=== PATIENT | male | born 1965 | race Caucasian/White ===

== ENCOUNTER 2022-02-06 22:03 | Inpatient (IN) | payer MEDICARE ==
[~2022-02-06 22:03] MED LIST: Iopamidol-370 76% 500 ML 1 ML ONE
[2022-02-06] MEDS ORDERED: Morphine 4 MG/ML VIAL ONE (22:08)
[2022-02-06] MEDS ORDERED: CEFAZOLIN 1 GM VIAL ONE (22:08)
[2022-02-06] MEDS ORDERED: Ketorolac Tromethamine 30 MG/ML VIAL ONE (22:08)
[2022-02-06] MEDS ORDERED: Boostrix 0.5 ML (Tdap) VIAL (>/=7 yrs of age) ONE (22:09)
[2022-02-06] MEDS ORDERED: Ondansetron PF 4 MG/2 ML Vial ONE ×2 (22:32→23:12)
[2022-02-06 22:39] LABS: #Basophils 0.1 thou/uL (0.0-0.2); #Eosinphils 0.2 thou/uL (0.0-0.7); #Lymphocytes 1.8 thou/uL (1.20-3.40); #Monocytes 0.7 thou/uL (0.11-0.59); #Neutrophils 6.8 thou/uL (1.40-6.50); %Basophils 0.9 % (0.0-1.0); %Eosinophils 1.8 % (0.0-10.0); %Lymphocytes 18.8 % (21.0-51.0); %Monocytes 6.9 % (0.0-10.0); %Neutrophils 71.5 % (42.0-75.0); Hemoglobin 15.7 g/dL (14.0-18.0); Mean Corpuscular HGB CONC 33.1 g/dL (32.0-36.0); Mean Corpuscular Hemoglobin 30.7 pg (27.0-31.0); Mean Corpuscular Volume 92.9 fl (78.0-98.0); Platelet Count 427 10x3/uL (130-400); RBC Distribution Width 12.5 % (11.5-14.5); Red Blood Cell (RBC) Count 5.12 mill/uL (4.70-6.10); White Blood Cell (WBC) Count 9.5 10x3/uL (4.8-10.8)
[2022-02-06] MEDS ORDERED: Fentanyl 250 MCG/5 ML VIAL ONE (22:44)
[2022-02-06 23:07] LABS: Acetaminophen Less than 10.0 mcg/mL (10.0-30.0); Alcohol Less than 10 mg/dL (Less than 10); Salicylate Less than 8.0 mg/dL (15.0-30.0)
[2022-02-06 23:08] LABS: ALT (SGPT) 15 U/L (8-55); AST (SGOT) 15 U/L (5-34); Alkaline Phosphatase 74 U/L (40-110); Anion Gap 12 mmol/L (10-20); BUN (Urea Nitrogen) 10 mg/dL (8.4-25.7); Bilirubin, Total 0.4 mg/dL (0.2-1.2); Calc. Creatinine Clearance 0 mL/min (70-130); Calcium 8.9 mg/dL (7.8-10.44); Carbon Dioxide 22 mmol/L (22-29); Chloride 105 mmol/L (98-107); Estimated GFR 96; Globulin 2.4 g/dL (2.4-3.5); Glucose 99 mg/dL (70-105); Potassium 4.1 mmol/L (3.5-5.1); Protein, Total 6.4 g/dL (6.0-8.3); Sodium 135 mmol/L (136-145)
[2022-02-06] MEDS ORDERED: Rocuronium Bromide 10 MG/ML (10ML VIAL) ONE (23:12)
[2022-02-06] MEDS ORDERED: Dexamethasone 20 MG/5 ML VIAL ONE (23:12)
[2022-02-06] MEDS ORDERED: PROPOFOL 200 MG/20 ML VIAL ONE (23:12)
[2022-02-06] MEDS ORDERED: Succinylcholine Chloride 100 MG/5 ML SYRINGE FS ONE (23:12)
[2022-02-06] MEDS ORDERED: ePHEDrine 50 MG/ML VIAL ONE (23:12)
[2022-02-06] MEDS ORDERED: Lidocaine 1% PF 5 ML VIAL ONE (23:12)
[2022-02-06 23:17] LABS: Bilirubin Negative (Negative); Blood, Urine Negative (Negative); Clarity Clear (Clear); Glucose, Urine (Dipstick) Normal (Negative); Ketone, Urine Negative (Negative); Leukocyte Negative Leu/uL (Negative); Nitrite Negative (Negative); Protein, Urine (Dipstick) Negative (Neg-Trace); Specific Gravity, Urine 1.032 (1.002-1.036); Urobilinogen Normal mg/dL (Less than 2)
[2022-02-06 23:27] LABS: Magnesium 1.9 mg/dL (1.6-2.6); Phosphorus 3.2 mg/dL (2.3-4.7)
[2022-02-06 23:42] LABS: Amphetamine Detected (NotDetected); Barbiturates Screen Not Detected (NotDetected); Benzodiazepine Screen Not Detected (NotDetected); Cocaine Metabolite Screen Not Detected (NotDetected); Methadone Not Detected (NotDetected); Methamphetamine Detected (NotDetected); Opiate Screen Detected (NotDetected); Oxycodone Screen Not Detected (NotDetected); Phencyclidine (PCP) Not Detected (NotDetected); THC/Cannabinoid Screen Not Detected (NotDetected); Tricyclic Screen Not Detected (NotDetected)
[2022-02-06 23:43] LABS: SARS-CoV-2 NAA Rapid Test Not Detected (NotDetected)
[2022-02-06] MEDS ORDERED: SUGAMMADEX SODIUM 200 MG/2 ML VIAL ONE (23:53)
[2022-02-07] MEDS ORDERED: Ondansetron PF 4 MG/2 ML Vial IVP PRN (00:16)
[2022-02-07] MEDS ORDERED: Dextrose 50% Abboject 50 ML SYRINGE SLOW IVP PRN (00:16)
[2022-02-07] MEDS ORDERED: TETANUS, DIPHTHERIA TOX,ADULT (TDVAX) 0.5 ML VIAL IM ONE (00:16)
[2022-02-07] MEDS ORDERED: Dextrose 5% in Water 1,000 ML IV PRN (00:16)
[2022-02-07] MEDS ORDERED: Promethazine HCl 25 MG/ML VIAL IVPB PRN (00:24)
[2022-02-07] MEDS ORDERED: Ondansetron HCl/PF 4 MG/2 ML Vial IVP PRN (00:24)
[2022-02-07] MEDS ORDERED: Promethazine HCl 25 MG/ML VIAL IM PRN (00:24)
[2022-02-07] MEDS ORDERED: HYDROmorphone 2 MG/ML VIAL SLOW IVP PRN (00:24)
[2022-02-07] MEDS ORDERED: Fentanyl 100 MCG/2 ML VIAL ONE (00:37)
[2022-02-07] MEDS: Sodium Chloride 0.9% 1,000 ML IV SCH ×3 (01:43→17:00)
[2022-02-07 01:49] VITALS: BMI 22.0
[2022-02-07] MEDS: Morphine 4 MG/ML VIAL SLOW IVP PRN ×5 (02:44→21:14)
[2022-02-07] MEDS: Oxazepam 10 MG CAP PO SCH ×3 (05:08→21:03)
[2022-02-07] MEDS: CEFAZOLIN 2 GM in Sodium Chloride 0.9% 100 ML IVPB SCH ×3 (05:08→21:03)
[2022-02-07 06:43] LABS: Hemoglobin 15.9 g/dL (14.0-18.0); Mean Corpuscular HGB CONC 33.1 g/dL (32.0-36.0); Mean Corpuscular Hemoglobin 30.5 pg (27.0-31.0); Mean Corpuscular Volume 92.1 fl (78.0-98.0); Platelet Count 449 10x3/uL (130-400); RBC Distribution Width 12.6 % (11.5-14.5); Red Blood Cell (RBC) Count 5.22 mill/uL (4.70-6.10); White Blood Cell (WBC) Count 25.9 10x3/uL (4.8-10.8)
[2022-02-07 06:54] LABS: Anion Gap 12 mmol/L (10-20); BUN (Urea Nitrogen) 7 mg/dL (8.4-25.7); Calc. Creatinine Clearance 104 mL/min (70-130); Calcium 8.7 mg/dL (7.8-10.44); Carbon Dioxide 23 mmol/L (22-29); Chloride 104 mmol/L (98-107); Estimated GFR 101; Glucose 160 mg/dL (70-105); Magnesium 1.8 mg/dL (1.6-2.6); Potassium 4.2 mmol/L (3.5-5.1); Sodium 135 mmol/L (136-145)
[2022-02-07] MEDS: Folic Acid 1 MG TAB PO SCH (07:34)
[2022-02-07] MEDS: Famotidine/PF 20 mg/2ml Vial SLOW IVP SCH ×2 (07:34→21:02)
[2022-02-07] MEDS: Thiamine 100 MG TAB PO SCH (07:34)
[2022-02-07] MEDS: Multivitamin W/ Minerals 1 TAB PO SCH (07:34)
[2022-02-07] MEDS ORDERED: Magnesium 2 GM/50 ML(in water) 2 GM in Premix Bag 1 BAG IVPB SCH (07:45)
[2022-02-07] MEDS: Divalproex Sodium DR 500 MG TAB PO SCH (08:19)
[2022-02-07] MEDS ORDERED: FLU VACC QS2022-23(6MOS UP)/PF 60 MCG/0.5 ML SYRINGE IM ONE (09:00)
[2022-02-07] MEDS ORDERED: DIAZEPAM 10 MG PO SCH (09:00)
[2022-02-07 09:45] LABS: Band 16 % (5-11); Lymphocytes 2 % (21-51); MDiff Complete? YES; Monocytes 3 % (0-10); Neutrophil 77 % (42-75); Platelet Morphology Comment Appears Increased; RBC Morphology Normal; Reactive Lymphocytes 2 % (0-10)
[2022-02-07] MEDS: Acetaminophen/Codeine 30-300mg Tablet PO SCH ×3 (11:04→23:17)
[2022-02-07] MEDS: Gabapentin 100 MG CAP PO SCH ×2 (14:08→21:02)
[2022-02-07] MEDS: Cyclobenzaprine 10 MG TAB PO PRN (14:08)
[2022-02-08] MEDS: CEFAZOLIN 2 GM in Sodium Chloride 0.9% 100 ML IVPB SCH (05:26)
[2022-02-08] MEDS: Acetaminophen/Codeine 30-300mg Tablet PO SCH ×4 (05:27→21:44)
[2022-02-08] MEDS: Oxazepam 10 MG CAP PO SCH ×3 (05:27→21:46)
[2022-02-08 06:19] LABS: #Basophils 0.1 thou/uL (0.0-0.2); #Eosinphils 0.1 thou/uL (0.0-0.7); #Lymphocytes 1.4 thou/uL (1.20-3.40); #Monocytes 0.9 thou/uL (0.11-0.59); #Neutrophils 9.1 thou/uL (1.40-6.50); %Basophils 0.5 % (0.0-1.0); %Eosinophils 0.5 % (0.0-10.0); %Lymphocytes 11.9 % (21.0-51.0); %Monocytes 7.6 % (0.0-10.0); %Neutrophils 79.5 % (42.0-75.0); Hemoglobin 15.4 g/dL (14.0-18.0); Mean Corpuscular HGB CONC 32.8 g/dL (32.0-36.0); Mean Corpuscular Hemoglobin 30.6 pg (27.0-31.0); Mean Corpuscular Volume 93.3 fl (78.0-98.0); Mean Platelet Volume 7.3 fL (7.4-10.4); Platelet Count 390 10x3/uL (130-400); RBC Distribution Width 12.8 % (11.5-14.5); Red Blood Cell (RBC) Count 5.04 mill/uL (4.70-6.10); White Blood Cell (WBC) Count 11.4 10x3/uL (4.8-10.8)
[2022-02-08 06:38] LABS: Anion Gap 15 mmol/L (10-20); BUN (Urea Nitrogen) 7 mg/dL (8.4-25.7); Calc. Creatinine Clearance 118 mL/min (70-130); Calcium 9.1 mg/dL (7.8-10.44); Carbon Dioxide 20 mmol/L (22-29); Chloride 105 mmol/L (98-107); Estimated GFR 105; Glucose 116 mg/dL (70-105); Magnesium 2.1 mg/dL (1.6-2.6); Phosphorus 2.8 mg/dL (2.3-4.7); Potassium 3.9 mmol/L (3.5-5.1); Sodium 136 mmol/L (136-145)
[2022-02-08] MEDS ORDERED: Ibuprofen 200 MG TAB PO PRN (08:10)
[2022-02-08] MEDS: Gabapentin 100 MG CAP PO SCH ×3 (09:08→21:45)
[2022-02-08] MEDS: Famotidine 20 MG TAB PO SCH ×2 (09:08→21:45)
[2022-02-08] MEDS: Folic Acid 1 MG TAB PO SCH (09:08)
[2022-02-08] MEDS: Thiamine 100 MG TAB PO SCH (09:08)
[2022-02-08] MEDS: Senokot S 8.6-50 MG TAB PO SCH ×2 (09:08→21:44)
[2022-02-08] MEDS: Divalproex Sodium DR 500 MG TAB PO SCH (09:08)
[2022-02-08] MEDS: Multivitamin W/ Minerals 1 TAB PO SCH (09:08)
[2022-02-08] MEDS: Polyethylene Glycol 3350 17 GM Packet PO SCH (09:10)
[2022-02-08] MEDS: Enoxaparin Sodium 40 MG/0.4 ML SYRINGE SC SCH (09:10)
[2022-02-09] MEDS: Cyclobenzaprine 10 MG TAB PO PRN (04:33)
[2022-02-09] MEDS: Acetaminophen/Codeine 30-300mg Tablet PO SCH ×4 (05:30→23:45)
[2022-02-09] MEDS: Oxazepam 10 MG CAP PO SCH ×3 (05:31→20:21)
[2022-02-09] MEDS: Multivitamin W/ Minerals 1 TAB PO SCH (09:16)
[2022-02-09] MEDS: Folic Acid 1 MG TAB PO SCH (09:16)
[2022-02-09] MEDS: Thiamine 100 MG TAB PO SCH (09:16)
[2022-02-09] MEDS: Gabapentin 100 MG CAP PO SCH ×3 (09:17→20:21)
[2022-02-09] MEDS: Senokot S 8.6-50 MG TAB PO SCH ×2 (09:17→20:21)
[2022-02-09] MEDS: Divalproex Sodium DR 500 MG TAB PO SCH (09:17)
[2022-02-09] MEDS: Famotidine 20 MG TAB PO SCH ×2 (09:17→20:21)
[2022-02-09] MEDS: Enoxaparin Sodium 40 MG/0.4 ML SYRINGE SC SCH (09:18)
[2022-02-09] MEDS: Polyethylene Glycol 3350 17 GM Packet PO SCH (09:20)
[2022-02-09] MEDS ORDERED: Ketorolac Tromethamine 30 MG/ML VIAL IVP SCH (15:45)
[2022-02-09] MEDS ORDERED: Gabapentin 100 MG CAP PO SCH (15:45)
[2022-02-09] MEDS: Ketorolac Tromethamine 30 MG/ML VIAL IVP SCH (20:21)
[2022-02-10] MEDS: Ketorolac Tromethamine 30 MG/ML VIAL IVP SCH ×4 (03:20→21:30)
[2022-02-10] MEDS: Acetaminophen/Codeine 30-300mg Tablet PO SCH ×3 (06:12→17:00)
[2022-02-10] MEDS: Oxazepam 10 MG CAP PO SCH ×3 (06:13→21:28)
[2022-02-10] MEDS: Divalproex Sodium DR 500 MG TAB PO SCH (09:42)
[2022-02-10] MEDS: Thiamine 100 MG TAB PO SCH (09:42)
[2022-02-10] MEDS: Senokot S 8.6-50 MG TAB PO SCH ×2 (09:43→21:29)
[2022-02-10] MEDS: Multivitamin W/ Minerals 1 TAB PO SCH (09:43)
[2022-02-10] MEDS: Famotidine 20 MG TAB PO SCH ×2 (09:43→21:28)
[2022-02-10] MEDS: Gabapentin 100 MG CAP PO SCH ×3 (09:44→21:28)
[2022-02-10] MEDS: Enoxaparin Sodium 40 MG/0.4 ML SYRINGE SC SCH (09:47)
[2022-02-10] MEDS: Polyethylene Glycol 3350 17 GM Packet PO SCH (09:53)
[2022-02-10] MEDS: Folic Acid 1 MG TAB PO SCH (09:55)
[2022-02-11] MEDS: Acetaminophen/Codeine 30-300mg Tablet PO SCH ×3 (00:08→12:41)
[2022-02-11] MEDS: Oxazepam 10 MG CAP PO SCH ×2 (05:40→14:46)
[2022-02-11] MEDS: Divalproex Sodium DR 500 MG TAB PO SCH (09:31)
[2022-02-11] MEDS: Multivitamin W/ Minerals 1 TAB PO SCH (09:32)
[2022-02-11] MEDS: Folic Acid 1 MG TAB PO SCH (09:32)
[2022-02-11] MEDS: Gabapentin 100 MG CAP PO SCH ×2 (09:32→14:46)
[2022-02-11] MEDS: Enoxaparin Sodium 40 MG/0.4 ML SYRINGE SC SCH (09:32)
[2022-02-11] MEDS: Famotidine 20 MG TAB PO SCH (09:32)
[2022-02-11] MEDS: Thiamine 100 MG TAB PO SCH (09:32)
[2022-02-11] MEDS: Polyethylene Glycol 3350 17 GM Packet PO SCH (09:33)
[2022-02-11] MEDS: Senokot S 8.6-50 MG TAB PO SCH (09:33)
[2022-02-11] MEDS: traMADol HCl 50 MG TAB PO PRN ×2 (09:41→15:29)
[2022-02-11 11:04] VITALS: TEMP 97.7
[2022-02-11 14:31] VITALS: BP 129/78
== END 2022-02-11 15:41 | DRG 983 ==
LOC: ERS 22:03 → SDC/OP 23:52 → EEVIPCON 23:55 → SURG A 23:55
PROVIDERS: ADMIT Specialist; ATTEND Specialist
PROC: 0DQU0ZZ Repair Omentum, Open Approach (ICD-10-PCS; principal; 2022-02-06)
DX: S36.893A Laceration of other intra-abdominal organs, initial encounter (principal); S36.81XA Injury of peritoneum, initial encounter; K66.0 Peritoneal adhesions (postprocedural) (postinfection); S31.619A Laceration without foreign body of abdominal wall, unspecified quadrant with penetration into peritoneal cavity, initial encounter; F20.9 Schizophrenia, unspecified; F17.210 Nicotine dependence, cigarettes, uncomplicated; X78.1XXA Intentional self-harm by knife, initial encounter; G89.11 Acute pain due to trauma; Z20.822 Contact with and (suspected) exposure to COVID-19
CPT/HCPCS: 36415; 71045; 71260; 74177; 80048; 80053; 80306; 80307; 81003; 83735; 84100; 84443; 85025; 86850; 86900; 86901; 90471; 90715; 94640; 96374; 96375; G0390; J0690; J1100; J1650; J1885; J2270; J2405; J2704; J3010; J3475; J3490; J7050; J7620; Q9967; S0028; U0002

== ENCOUNTER 2022-05-28 22:50 | Emergency (ER) | payer MEDICARE ==
[2022-05-28 23:23] LABS: #Basophils 0.1 thou/uL (0.0-0.2); #Eosinphils 0.1 thou/uL (0.0-0.7); #Monocytes 0.7 thou/uL (0.11-0.59); #Neutrophils 7.9 thou/uL (1.40-6.50); %Basophils 0.9 % (0.0-1.0); %Lymphocytes 18.3 % (21.0-51.0); %Monocytes 6.5 % (0.0-10.0); %Neutrophils 73.3 % (42.0-75.0); Hemoglobin 16.9 g/dL (14.0-18.0); Mean Corpuscular HGB CONC 34.9 g/dL (32.0-36.0); Mean Corpuscular Hemoglobin 31.2 pg (27.0-31.0); Mean Corpuscular Volume 89.6 fl (78.0-98.0); Mean Platelet Volume 7.1 fL (7.4-10.4); Platelet Count 524 10x3/uL (130-400); RBC Distribution Width 13.2 % (11.5-14.5); Red Blood Cell (RBC) Count 5.41 mill/uL (4.70-6.10); White Blood Cell (WBC) Count 10.8 10x3/uL (4.8-10.8)
[2022-05-28 23:44] LABS: Bilirubin Negative (Negative); Blood, Urine Negative (Negative); Clarity Clear (Clear); Glucose, Urine (Dipstick) Normal (Negative); Ketone, Urine Negative (Negative); Leukocyte Negative Leu/uL (Negative); Nitrite Negative (Negative); Protein, Urine (Dipstick) Negative (Neg-Trace); Specific Gravity, Urine 1.006 (1.002-1.036); Urobilinogen Normal mg/dL (Less than 2); pH, Urine 5.5 (5.0-9.0)
[2022-05-28 23:45] LABS: Acetaminophen Less than 10.0 mcg/mL (10.0-30.0); Alcohol Less than 10 mg/dL (Less than 10); Salicylate Less than 8.0 mg/dL (15.0-30.0)
[2022-05-28 23:46] LABS: ALT (SGPT) 19 U/L (8-55); AST (SGOT) 18 U/L (5-34); Albumin 4.7 g/dL (3.5-5.0); Alkaline Phosphatase 68 U/L (40-110); Anion Gap 13 mmol/L (10-20); BUN (Urea Nitrogen) 10 mg/dL (8.4-25.7); Bilirubin, Total 0.3 mg/dL (0.2-1.2); Calc. Creatinine Clearance 0 mL/min (70-130); Calcium 9.9 mg/dL (7.8-10.44); Carbon Dioxide 26 mmol/L (22-29); Chloride 102 mmol/L (98-107); Estimated GFR 77; Globulin 2.6 g/dL (2.4-3.5); Glucose 109 mg/dL (70-105); Potassium 3.8 mmol/L (3.5-5.1); Protein, Total 7.3 g/dL (6.0-8.3); Sodium 137 mmol/L (136-145)
[2022-05-28 23:52] LABS: Amphetamine Detected (NotDetected); Barbiturates Screen Not Detected (NotDetected); Benzodiazepine Screen Not Detected (NotDetected); Cocaine Metabolite Screen Detected (NotDetected); Methadone Not Detected (NotDetected); Methamphetamine Detected (NotDetected); Opiate Screen Not Detected (NotDetected); Oxycodone Screen Not Detected (NotDetected); Phencyclidine (PCP) Not Detected (NotDetected); THC/Cannabinoid Screen Not Detected (NotDetected); Tricyclic Screen Not Detected (NotDetected)
[2022-05-29] MEDS ORDERED: Lidocaine Viscous Sol 2% 15 ml UD Cup ONE (05:23)
[2022-05-29] MEDS ORDERED: Mag-Al 1200 mg/1200 mg/30 ML UDCUP ONE (05:23)
[2022-05-29 06:27] LABS: Acetaminophen Less than 10.0 mcg/mL (10.0-30.0)
[2022-05-29] MEDS ORDERED: hydrOXYzine 25 MG TAB ONE (09:39)
[2022-05-29] MEDS ORDERED: hydrOXYzine Pamoate 25 mg Capsule ONE (09:43)
[2022-05-29] MEDS ORDERED: risperiDONE 1 MG TAB ONE (11:48)
[2022-05-29] MEDS ORDERED: Nicotine 21 MG PATCH TOP SCH (12:00)
[2022-05-29] MEDS ORDERED: Ziprasidone 20 MG VIAL ONE (13:28)
[2022-05-29] MEDS ORDERED: Sterile Water 10 ML ONE (13:29)
== END 2022-05-29 17:04 ==
LOC: ERS 22:50
DX: R45.851 Suicidal ideations (principal)
CPT/HCPCS: 36415; 80053; 80143; 80306; 80307; 81003; 84443; 85025; 93005; 96372; J3486; Q0177